=== PATIENT | male | born 2000 | race Caucasian/White ===

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

== ENCOUNTER 2019-03-04 07:29 | Emergency (ER) | payer OTHER ==
[2019-03-04 07:38] VITALS: BP 144/87; PULSE 90; RESP 16; TEMP 99.7
[2019-03-04] MEDS ORDERED: TRANEXAMIC ACID 1,000 MG/10 ML VIAL IRRIGATION ONE (07:45)
--- NOTE | 2019-03-04 07:47 | ED ---
General Adult HPI - General Chief complaint: Fall Stated complaint: fall, head injury Time Seen by Provider: 03/04/19 07:30 Source: patient, RN notes reviewed, old records reviewed Mode of arrival: ambulatory Limitations: no limitations - History of Present Illness Initial comments: This is a 19-year-old male who presents emergency Department complaining of a headache and a laceration to the occipital region of his scalp. Patient states he slipped on ice and hit his head per patient denies any neck pain. Patient denies any loss of consciousness. Patient states he does have a fairly moderate headache at this time. Denies being on any blood thinners. Patient denies any back pain chest pain or arm pain. Patient denies any lower extremity pain. - Related Data Home Medications Medication Instructions Recorded Confirmed Docusate [Colace] 100 mg PO BID 02/17/17 02/17/17 Previous Rx's Medication Instructions Recorded FLUoxetine HCL [PROzac] 20 mg PO DAILY #30 cap 03/02/17 Allergies Allergy/AdvReac Type Severity Reaction Status Date / Time amoxicillin Allergy Unknown Verified 03/04/19 07:38 sulfamethoxazole Allergy Unknown Verified 03/04/19 07:38 [From Bactrim] trimethoprim [From Bactrim] Allergy Unknown Verified 03/04/19 07:38 Review of Systems ROS Statement: Those systems with pertinent positive or pertinent negative responses have been documented in the HPI. ROS Other: All systems not noted in ROS Statement are negative. Past Medical History Past Medical History: Asthma Additional Past Medical History / Comment(s): Bradycardia, syncopal episodes. History of Any Multi-Drug Resistant Organisms: None Reported Past Surgical History: No Surgical Hx Reported Past Anesthesia/Blood Transfusion Reactions: No Reported Reaction Past Psychological History: No Psychological Hx Reported Smoking Status: Never smoker Past Alcohol Use History: None Reported Past Drug Use History: None Reported - Past Family History Father Family Medical History: Diabetes Mellitus Additional Family Medical History / Comment(s): Denies family history of heart problems General Exam - General Exam Comments Initial Comments: GENERAL Patient is well-developed and well-nourished. Patient is in mild distress. Patient's neck and full range of motion without pain however he did have a substantial distracting headache. EYES Patient's pupils are equal and round. Extraocular motion is intact. SKIN Patient has a 3.5 cm laceration to the occipital region of his head. NEURO The patient is alert and oriented 3 PYSCH Patient has normal interpersonal interactions. MUSCULOSKELETAL All 4 times and full range of motion. Limitations: no limitations Course Vital Signs 03/04/19 07:35 Temperature 99.7 F H Pulse Rate 90 Respiratory 16 Rate Blood Pressure 144/87 O2 Sat by Pulse 99 Oximetry Procedures - Laceration Laceration #1 Consent Obtained: verbal consent Indication: laceration Site: scalp Description: linear Depth: simple, single layer Pre-repair: wound explored Size of Sutures: other (Clementina) Number of Sutures: 7 Technique: simple, interrupted Complications: pain Patient Tolerated Procedure: well Medical Decision Making - Medical Decision Making I used he x-ray to stop the bleeding. CT of the brain and C-spine showed no acute abnormality. I stapled the laceration with 7 clementina. It approximated the wound nicely. Disposition Clinical Impression: Fall, Head injury, Scalp laceration Disposition[facility] Instructions (If sedation given, give patient instructions): Laceration (ED), Head Injury (ED), Concussion (ED) Additional Instructions: Staple should be removed in 7 days Referrals: None,Stated [Primary Care Provider] - 1-2 days Time of Disposition: 08:30
[2019-03-04] MEDS ORDERED: ACETAMINOPHEN TAB 500 MG TAB PO STA (08:25)
[2019-03-04] MEDS ORDERED: IBUPROFEN 600 MG TAB PO STA (08:25)
--- NOTE | 2019-03-04 08:26 | CT ---
EXAMINATION TYPE: CT brain casey wo con DATE OF EXAM: 03/04/2019 COMPARISON: Previous CT scan of the brain dated 02/06/2017 HISTORY: Head and neck pain. Posterior injury today. CT DLP: 2042.8 mGycm Automated exposure control for dose reduction was used. TECHNIQUE: CT scan of the head and cervical spine are performed without contrast. FINDINGS: BRAIN: Central structures are midline. There is no evidence of hydrocephalus. No acute focal lesion, mass effect or midline shift is seen. I do not see evidence of intracranial blood. Visualized portions of the paranasal sinuses and mastoids are clear. The bony calvarium is intact. IMPRESSION: NO ACUTE INTRACRANIAL ABNORMALITY. CERVICAL SPINE: Visualized portions of the lungs are clear. Prevertebral soft tissues are normal. Vertebral body height and alignment are maintained. Atlantoaxial relationships are normal. There is n o significant degenerative change. There is an incomplete arch of C1, a normal variant. No fractures are seen. There is no evidence of d iscal protrusion IMPRESSION: NO ACUTE OSSEOUS LESION.
== END 2019-03-04 08:40 | disposition other institution (70) ==
LOC: EC 07:29
DX: S01.01XA Laceration without foreign body of scalp, initial encounter (principal); S09.90XA Unspecified injury of head, initial encounter; Z88.0 Allergy status to penicillin; Z88.2 Allergy status to sulfonamides; W00.0XXA Fall on same level due to ice and snow, initial encounter; Y92.89 Other specified places as the place of occurrence of the external cause
CPT/HCPCS: 12002; 70450; 72125; 99285

== ENCOUNTER → 2022-09-28 | Outpatient (CLI) | payer OTHER ==
--- NOTE | 2022-09-28 15:18 | P.SLEEP ---
History of Present Illness H&P Date: 09/28/22 This is a 22-year-old morbidly obese male patient was referred to me for possibility of sleep apnea. The patient has diabetes mellitus and hyperlipidemia and chronic sweating. The patient has a very irregular sleep schedule. He states that he doesn't sleep for 2 days and following that he sleeps for long period of time. He does not have a regular schedule. In fact he is unable to tell me what time he goes to bed and what time he wakes up. He spends time watching television and hanging out with friends and ultimately he crashes and falls asleep. He snores loud. He has been told to stop breathing during sleep. He wakes up with dry mouth. His been having this from for the past 5 years at least. 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 No sleep paralysis. No hallucinations. No cataplexy. His weight is up by around 150 pounds over the past 10 years at least. No anxiety. No depression. No head trauma. No substance abuse. No alcoholism. His [place] score is at 9. No Restasis his lower extremities. No issues with chronic pain. No grinding of the teeth. No heartburn. Review of Systems Constitutional: Reports daytime sleepiness, Reports fatigue, Reports weight gain Eyes: denies as per HPI, denies blurred vision, denies bulging eye, denies decreased vision, denies diplopia, denies discharge, denies dry eye, denies irritation, denies itching, denies pain, denies photophobia, denies loss of peripheral vision, denies loss of vision, denies tunnel vision/blind spots Ears: deny: decreased hearing, ear discharge, earache, tinnitus Ears, nose, mouth and throat: Reports as per HPI Breasts: absent: as per HPI, gynecomastia Cardiovascular: Reports as per HPI Respiratory: Reports dyspnea, Reports snoring Gastrointestinal: Reports as per HPI Genitourinary: Reports as per HPI Musculoskeletal: Reports as per HPI Musculoskeletal: absent: ankle pain, ankle stiffness, ankle swelling, as per HPI, elbow pain, elbow stiffness, elbow swelling, foot pain, foot stiffness, foot swelling, hand pain, hand stiffness, hand swelling, hip pain, hip stiffness, hip swelling, knee pain, knee stiffness, knee swelling, shoulder pain, shoulder stiffness, shoulder swelling, wrist pain, wrist stiffness, wrist swelling Integumentary: Reports as per HPI Neurological: Reports as per HPI Psychiatric: Reports as per HPI Endocrine: Reports as per HPI, Reports fatigue Hematologic/Lymphatic: Reports as per HPI Allergic/Immunologic: Reports as per HPI Past Medical History Past Medical History: Asthma Additional Past Medical History / Comment(s): Diabetes mellitus, hyperlipidemia History of Any Multi-Drug Resistant Organisms: None Reported Past Surgical History: No Surgical Hx Reported Past Anesthesia/Blood Transfusion Reactions: No Reported Reaction Past Psychological History: No Psychological Hx Reported Past Alcohol Use History: None Reported Past Drug Use History: None Reported - Past Family History Father Family Medical History: Diabetes Mellitus Additional Family Medical History / Comment(s): Denies family history of heart problems Medications and Allergies Home Medications and Allergies Comment(s): Patient is currently off Prozac. He is taking metformin and another statin that he cannot recall Home Medications Medication Instructions Recorded Confirmed Type Docusate [Colace] 100 mg PO BID 02/17/17 02/17/17 History FLUoxetine HCL [PROzac] 20 mg PO DAILY #30 cap 03/02/17 Rx Allergies Allergy/AdvReac Type Severity Reaction Status Date / Time amoxicillin Allergy Unknown Verified 03/04/19 07:38 sulfamethoxazole Allergy Unknown Verified 03/04/19 07:38 [From Bactrim] trimethoprim [From Bactrim] Allergy Unknown Verified 03/04/19 07:38 Physical Exam BP 119/80, pulse is 107, respirations 18, temperature is 98.3, saturations 96% on room air, [place] score is at 9, BMI 48.5, weight is 363 pounds, the size of the neck is more than 20 inches. Gen. appearance the patient is morbidly obese, calm and comfortable, sweating profusely even at rest. The patient appeared well nourished and normally developed. Vital signs as documented. Head exam is unremarkable. No scleral icterus or corneal arcus noted. Neck is without jugular venous distension, thyromegaly, or carotid bruits. The patient is a Mallampati class IV with significant crowding of the posterior pharynx Carotid upstrokes are brisk bilaterally. Lungs are clear to auscultation and percussion. Cardiac exam reveals the PMI to be normally sized and situated. Rhythm is regular. First and second heart sounds normal. No murmurs, rubs or gallops. Abdominal exam reveals normal bowel sounds, no masses, no organomegaly and no aortic enlargement. Extremities are nonedematous and both femoral and pedal pulses are normal. Neurologically, the patient is awake and alert and the patient does not have any focal neurological deficit. Cranial nerves are essentially intact. Assessment and Plan Plan: Irregular sleep-wake cycle with marketed abnormalities with sleep hygiene measures Suspected obstructive sleep apnea based on obesity, snoring anatomic features. The patient is a Mallampati class IV. The patient's tonsillar enlargement Obesity with a BMI of 48.5 Chronic fatigue and sleepiness secondary to above, current [place] score is at 9 Diabetes mellitus Hyperlipidemia Smoking Chronic perspiration Plan Educated the patient on principles of sleep hygiene and the importance of maintaining a regular sleep schedule The patient will try to consolidate his sleeping hours between 11 PM and 6 AM in the morning. We'll set up this patient for a screening polysomnography to evaluate for sleep apnea Encourage weight loss Avoid caffeinated beverages and alcohol at least 3 hours prior to going to bed ENT evaluation for possible tonsillectomy We'll continue to follow Sleep Note - Sleep Note Sleep Note: Temperature: Pulse Rate: Respiratory Rate: Blood Pressure: SpO2: Height: Weight: BMI: Neck Circumference:
== END ==
LOC: 3 N SLEEP 13:56
PROVIDERS: ATTEND Internal Medicine Critical Care Medicine
DX: G47.33 Obstructive sleep apnea (adult) (pediatric) (principal); E66.9 Obesity, unspecified; E11.9 Type 2 diabetes mellitus without complications; E78.5 Hyperlipidemia, unspecified; F17.200 Nicotine dependence, unspecified, uncomplicated; R53.83 Other fatigue; R61 Generalized hyperhidrosis; J45.909 Unspecified asthma, uncomplicated; Z88.0 Allergy status to penicillin; Z88.2 Allergy status to sulfonamides; Z88.8 Allergy status to other drugs, medicaments and biological substances; Z68.42 Body mass index [BMI] 45.0-49.9, adult
CPT/HCPCS: 99212